=== PATIENT | female | born 1960 | race Caucasian/White ===

== ENCOUNTER → 2017-02-09 | Outpatient (CLI) | payer OTHER ==
[~2017-02-09] MED LIST: ASPIRIN EC81 MG PO; CITRACAL PO; CITRACAL950 MG PO; COMPAZINE10 MG PO; DEXAMETHASON1 MG PO; EQL GLUCOSAMIN PO; FISH OIL1000 MG PO; LEVOTHROID (S137 MCG PO; NORCO 5-325 MG1 TAB PO; PREMPRO 0.3 MG1 EACH PO; PRENATAL 1+1)(P1 TAB PO; RYTHMOL PO; VITAMIN B-121000 MCG PO; VITAMIN D-32000 UNI1 PO; [UNRECOGNIZED DRUG - OTHER] PO
== END | disposition disaster alternative care site (69) ==
LOC: GRAD 12:59
DX: Z08 Encounter for follow-up examination after completed treatment for malignant neoplasm (principal); R91.8 Other nonspecific abnormal finding of lung field; Z85.118 Personal history of other malignant neoplasm of bronchus and lung; Z90.2 Acquired absence of lung [part of]

== ENCOUNTER → 2017-03-05 | Outpatient (CLI) | payer OTHER | END | disposition disaster alternative care site (69) | LOC: GKIC 03-04 12:00 | DX: C34.82 Malignant neoplasm of overlapping sites of left bronchus and lung (principal); N18.3 Chronic kidney disease, stage 3 (moderate); K52.831 Collagenous colitis | CPT/HCPCS: A9552 ==